=== PATIENT | male | born 1985 | race Caucasian/White ===

== ENCOUNTER → 2023-08-26 14:24 | Outpatient (BNVA) | payer OTHER, SELFPAY | PROVIDERS: Visit Provider Emergency Medicine | DX: M79.672 Pain in left foot (principal); M79.89 Other specified soft tissue disorders | CPT/HCPCS: 73630 ==

== ENCOUNTER 2023-10-24 06:18 | Emergency (ER) | payer OTHER, SELFPAY ==
[2023-10-24 06:24] VITALS: PULSE 88; RESP 18; TEMP 36.6; O2SAT 97; BMI 21.4
--- NOTE | 2023-10-24 06:46 | ED_ITS ---
HPI - Abdominal Pain 2 General: Chief Complaint: Abdominal Pain Stated Complaint: genital/lower abd pain Time Seen by Provider: 10/24/23 06:29 Source: patient Mode of arrival: ambulatory History of Present Illness: 38-year-old male presents emergency room complaining of groin pain. He isolates the pain to the right pubic bone. It is worse with activity. Began a couple weeks ago he seen his primary care doctor and was referred to a surgeon for possible hernia. The surgeon does not feel there is any hernia present and advised him just to observe. He denies dysuria urgency or frequency denies any hematuria. No trauma or direct blow to the area has not noticed any bulging in that region. Previously had a right thigh injury for which she had surgery although cannot tell me exactly what happened. MD elicited complaint: abdominal pain Onset (ago): week(s) Location: Other (Right groin) Quality: sharp Exacerbating factors: movement and other (Palpation) Relieving factors: rest Associated Symptoms: Denies anorexia, belching, bloating, change in bowel habits, change in stool character, chills, coffee ground emesis, constipation, GI cramping, diarrhea, dyspepsia, dysuria, excessive flatus, fever(s), heartburn, hematochezia, hematuria, hematemesis, fecal incontinence, loose stools, melena, nausea, poor appetite, syncope and vomiting Review of Systems 2 Const: Denies: fever(s) or chills Card: Denies: chest pain or syncope Resp: Denies: dyspnea GI: Denies: abdominal pain, nausea, vomiting, hematemesis, coffee ground emesis, heartburn, diarrhea, constipation, bloating, GI cramping, belching, excessive flatus, fecal incontinence, change in bowel habits, change in stool character, hematochezia or melena : Denies: dysuria, urinary frequency, urinary urgency or hematuria Musc: Denies: neck pain or back pain Skin/Breast: Denies: rash Physical Exam 2 Const: GENERAL APPEARANCE: cooperative and comfortable O RIENTATION/CONSCIOUSNESS: Yes awake, Yes oriented to person, Yes oriented to place and Yes oriented to time HENMT: COMMON NORMALS: normocephalic, atraumatic and hearing grossly normal bilaterally HEAD & SCALP: normocephalic and atraumatic Resp: COMMON NORMALS: normal respiratory effort, No retractions, No use of accessory muscles and clear to auscultation bilaterally AUSCULTATION: clear to auscultation bilaterally Cardio: COMMON NORMALS: regular rate, regular rhythm and No murmurs present (Cardio) RATE: regular rate RHYTHM: regular rhythm GI: COMMON NORMALS: Soft to palpation and No hepatosplenomegaly present A USCULTATION: Yes normoactive bowel sounds PALPATION: Yes Soft to palpation, No Tenderness to palpation present (GI), No Guarding due to palpation present (GI) and Yes No hepatosplenomegaly present : OTHER: Pain with palpation over the right pubic tubercle. Pain is reproducible. There is no swelling in that region. On examination right inguinal hernia at the external ring of the inguinal canal is loose but there is no bowel or omentum within the inguinal canal Extremity: COMMON NORMALS: normal to inspection, capillary refill normal, no clubbing, cyanosis or edema, no calf tenderness and no pedal edema Neuro: SENSORIUM/ORIENTATION: Yes oriented to person, Yes oriented to place and Yes oriented to time Skin: COMMON NORMALS: no rashes or lesions noted GENERAL SKIN EXAM: no rashes or lesions noted Course 2 Vital Signs: Vital signs: Vital Signs Temperature 97.8 F 10/24/23 06:24 Pulse Rate 66 10/24/23 09:18 Respiratory Rate 18 10/24/23 06:24 Blood Pressure 122/80 10/24/23 09:18 Pulse Oximetry 99 10/24/23 09:18 Oxygen Delivery Me thod Room Air 10/24/23 09:00 MDM - Abdominal Pain Medical Decision Making Tenderness over the right pubic tubercle. On exam for hernia the outer ring of the inguinal canal is loose but there is no contents within the inguinal canal. Remainder of labs unremarkable. Pain is worse with activity. Reproducible with palpation. Will discharge patient home on anti-inflammatories have him follow- up with primary care. Medical Records I reviewed the patient's medical records. Lab Data I reviewed the patient's lab results. 10/24/23 07:50 10/24/23 07:50 Labs/Radiology: Laboratory Results WBC 4.99 10^3/uL (3.29-11.43) 10/24/23 07:50 RBC 4.30 10^6/uL (3.85-5.65) 10/24/23 07:50 Hgb 12.30 g/dL (11.27-16.99) 10/24/23 07:50 Hct 37.8 % (37-53) 10/24/23 07:50 MCV 87.9 fl (82-101) 10/24/23 07:50 MCH 28.6 pg (27-33) 10/24/23 07:50 MCHC 32.5 g/dL (30-55) 10/24/23 07:50 RDW 13.6 % (12.1-15.1) 10/24/23 07:50 Plt Count 304 10^3/cmm (157-399) 10/24/23 07:50 MPV 9.4 fL (7.4-10.4) 10/24/23 07:50 Neut % (Auto) 55.3 % 10/24/23 07:50 Lymph % (Auto) 31.3 % 10/24/23 07:50 [place] % (Auto) 9.4 % 10/24/23 07:50 Eos % (Auto) 3.0 % 10/24/23 07:50 Baso % (Auto) 0.8 % 10/24/23 07:50 Neut # (Auto) 2.76 10^3/uL (1.8-7.7) 10/24/23 07:50 Lymph # (Auto) 1.6 10^3/uL (0.8-4.8) 10/24/23 07:50 [place] # (Auto) 0.5 10^3/uL (0.2-0.9) 10/24/23 07:50 Eos # (Auto) 0.2 10^3/uL (0.0-0.8) 10/24/23 07:50 Baso # (Auto) 0.0 10^3/uL (0.0-0.1) 10/24/23 07:50 Nucleated RBC % (auto) 0 % 10/24/23 07:50 Nucleated RBCs # 0.0 /100WBC 10/24/23 07:50 Sodium 137 mmol/L (136-145) 10/24/23 07:50 Potassium 4.0 mmol/L (3.5-5.1) 10/24/23 07:50 Chloride 102 mmol/L (98-107) 10/24/23 07:50 Carbon Dioxide 24 mmol/L (22-29) 10/24/23 07:50 Anion Gap 15.0 (5-19) 10/24/23 07:50 BUN 15 mg/dL (6-20) 10/24/23 07:50 Creatinine 0.6 mg/dL (0.7-1.2) L 10/24/23 07:50 GFR Calculation 149.2 mL/min (90-130) H 10/24/23 07:50 Glucose 104 mg/dL (65-115) 10/24/23 07:50 Calculated Osmolality 285 mOsm/kg (285-295) 10/24/23 07:50 Calcium 9.8 mg/dL (8.5-10.5) 10/24/23 07:50 Total Bilirubin 0.3 mg/dL (0.15-1.2) 10/24/23 07:50 AST 14 U/L (0-40) 10/24/23 07:50 ALT 13 U/L (0-41) 10/24/23 07:50 Alkaline Phosphatase 49 U/L (40-130) 10/24/23 07:50 Total Protein 6.6 g/dL (6.6-8.7) 10/24/23 07:50 Albumin 4.0 g/dL (3.5-5.2) 10/24/23 07:50 Globulin 2.6 g/dL (1.3-4.6) 10/24/23 07:50 Lipase 12 U/L (13-60) L 10/24/23 07:50 Urine Color Yellow (Yellow) 10/24/23 07:59 Urine Appearance Clear (CLEAR) 10/24/23 07:59 Urine pH 7 (5-7) 10/24/23 07:59 Ur Specific [place] 1.010 (1.005-1.030) 10/24/23 07:59 Urine Protein Neg (Negative) 10/24/23 07:59 Urine Glucose (UA) Norm (Normal) 10/24/23 07:59 Urine Ketones Negative (Negative) 10/24/23 07:59 Urine Blood Neg (Negative) 10/24/23 07:59 Urine Nitrate Negative (Negative) 10/24/23 07:59 Urine Bilirubin Neg (Negative) 10/24/23 07:59 Urine Urobilinogen Norm mg/dL (Negative) 10/24/23 07:59 Ur Leukocyte Esterase Negative (Negative) 10/24/23 07:59 All radiology interpretation(s) finalized by discharge Discharge Plan Discharge Patient Disposition: Home Clinical Impression: Strain of right inguinal muscle Condition: Stable Prescriptions: New diclofenac sodium 75 mg tablet,delayed release (DR/EC) 75 mg PO Q12H PRN (Reason: pain) Qty: 20 0RF Medrol (Josue) 4 mg tablets,dose pack See Rx Instructions .ROUTE .COMPLEX Qty: 21 0RF Rx Instructions: orally per package directions No Action Tylenol Extra Strength 500 mg powder in packet 500 mg PO QID PRN (Reason: Pain) Discharge Orders: Discharge ED (Routine); Ordered 10/24/23 Ordered By: Jorge Lozada Referrals: Enrique Head [Primary Care Provider] - Patient Instructions: Opioid Safety, Pain Management Activity Restrictions/Additional Instructions: Thank you for choosing [facility] for your healthcare needs today. It is very important that you follow up as instructed or that you return to the Emergency Department should you have concerns or if your condition changes or worsens in any way. You were seen in the emergency room complaining groin pain. While there is a loose inguinal ring there is no active hernia at this time. Laboratory tests were unremarkable. Based on your exam suspect you have a irritation at the origin of some of the muscles in the groin that come off the pubic tubercle. Recommend anti-inflammatories and steroids minimize activity and follow-up with your primary care doctor Coding Level of Care Code ED Lamp Decorator for Christine David
[2023-10-24] MEDS: dexamethasone 10 mg/mL INJ IM (07:39)
[2023-10-24] MEDS: ketorolac 30 mg/mL INJ IVP (07:39)
[2023-10-24 07:45] VITALS: BP 104/75; PULSE 64; O2SAT 99
[2023-10-24 08:01] LABS: Basophils % 0.8 %; Eosinophils # 0.2 10^3/uL (0.0-0.8); Hematocrit 37.8 % (37-53); Lymphocytes # 1.6 10^3/uL (0.8-4.8); Lymphocytes % 31.3 %; Mean Corpuscular HGB Conc 32.5 g/dL (30-55); Mean Corpuscular Hemoglobin 28.6 pg (27-33); Mean Corpuscular Volume 87.9 fl (82-101); Mean Platelet Volume 9.4 fL (7.4-10.4); Monocytes # 0.5 10^3/uL (0.2-0.9); Monocytes % 9.4 %; Neutrophils # 2.76 10^3/uL (1.8-7.7); Neutrophils % 55.3 %; Nucleated Red Blood Cells % 0 %; Platelet Count 304 10^3/cmm (157-399); Red Cell Distribution Width 13.6 % (12.1-15.1); White Blood Count 4.99 10^3/uL (3.29-11.43)
[2023-10-24 08:15] LABS: Alanine Aminotransferase 13 U/L (0-41); Alkaline Phosphatase 49 U/L (40-130); Aspartate Amino Transferase 14 U/L (0-40); Blood Urea Nitrogen 15 mg/dL (6-20); Calcium 9.8 mg/dL (8.5-10.5); Carbon Dioxide 24 mmol/L (22-29); Chloride 102 mmol/L (98-107); Creatinine Clr Calc Pharmacy 159.0935; Globulin 2.6 g/dL (1.3-4.6); Glomerular Filtration Rate 149.2 mL/min (90-130); Glucose 104 mg/dL (65-115); Lipase 12 U/L (13-60); Osmolality Calculated 285 mOsm/kg (285-295); Sodium 137 mmol/L (136-145); Total Bilirubin 0.3 mg/dL (0.15-1.2); Total Protein 6.6 g/dL (6.6-8.7)
[2023-10-24 08:54] LABS: Add Urine Microscopic? NO; Charge for UA Resulting for Rev
[2023-10-24 08:56] LABS: Bilirubin Urine Neg (Negative); Blood Urine Neg (Negative); Glucose Urine UA Norm (Normal); Ketones Urine Negative (Negative); Leukocyte Esterase Urine Negative (Negative); Nitrate Urine Negative (Negative); Protein Urine Neg (Negative); Urine Appearance Clear (CLEAR); Urine Color Yellow (Yellow); Urobilinogen Urine Norm (Negative); pH Urine 7 (5-7)
[2023-10-24 09:00] VITALS: BP 105/70; PULSE 57; O2SAT 99
[2023-10-24 09:18] VITALS: BP 122/80; PULSE 66; O2SAT 99
== END 2023-10-24 09:23 | disposition home or self-care (01) ==
PROVIDERS: Emergency Provider Family Medicine; PCP Family Medicine
DX: S39.011A Strain of muscle, fascia and tendon of abdomen, initial encounter (principal); X58.XXXA Exposure to other specified factors, initial encounter
CPT/HCPCS: 80053; 81003; 83690; 85025; 96372; 96374; 99284; J1100; J1885